=== PATIENT | male | born 1955 | race Caucasian/White ===

== ENCOUNTER 2022-03-13 19:02 | Observation (INO) ==
[~2022-03-13 19:02] MED LIST: Metoprolol XL (24 HR) Succ 25 MG TAB.ER.24H PO SCH
[2022-03-13] MEDS ORDERED: Ondansetron 4 MG/2 ML VIAL IVP ONE (19:40)
[2022-03-13] MEDS ORDERED: 0.9 % Sodium Chloride 1,000 ML IV ONE (19:40)
[2022-03-13 20:17] LABS: Basophils % 0.5 %; Eosinophils # 0.1 K/mcL (0.0-0.6); Eosinophils % 0.8 %; Hematocrit 27.4 % (37.5-50.1); Hemoglobin 8.9 g/dL (12.9-16.9); Immature Granulocytes % 0.3 % (0-4); Lymphocytes # 0.6 K/mcL (0.6-4.6); Lymphocytes % 6.7 %; Mean Corpuscular HGB Conc 32.5 g/dL (31.6-35.5); Mean Corpuscular Hemoglobin 27.6 pg (28.0-33.3); Mean Corpuscular Volume 85.1 fL (83.0-100.0); Mean Platelet Volume 9.3 fL (9.4-12.4); Monocytes # 0.7 K/mcL (0.0-1.3); Monocytes % 7.8 %; Neutrophils # 7.3 K/mcL (1.6-8.9); Platelet Count 275 K/mcL (140-400); Red Blood Count 3.22 M/mcL (4.19-5.50); Red Cell Distribution Width 15.3 % (11.5-14.5); Segmented Neutrophils % 83.9 %; White Blood Count 8.8 K/mcL (4.3-11.1)
[2022-03-13 20:21] VITALS: RESP 18
[2022-03-13 20:29] LABS: INR 2.3; Prothrombin Time 25.1 Seconds (9.4-12.1)
[2022-03-13 20:39] LABS: Albumin 3.9 g/dL (3.5-5.7); Bilirubin,Total 0.4 mg/dL (0.3-1.0); Calcium 10.1 mg/dL (8.6-10.3); Phosphorous 3.8 mg/dL (2.7-4.5); Potassium 4.1 mEq/L (3.5-5.1); Total Protein 7.9 g/dL (6.4-8.9); Troponin I 0.05 ng/mL (< 0.04)
[2022-03-13] MEDS ORDERED: *HR* Dextrose 50 % in Water (Syg) 50 ML SYRINGE IVP PRN (21:11)
[2022-03-13] MEDS ORDERED: D5% in Water 1,000 ML IVC PRN (21:11)
[2022-03-13] MEDS ORDERED: Ipratropium/Albuterol Neb 3 ML IH PRN (21:11)
[2022-03-13] MEDS ORDERED: Dextrose Gel 15 GM/37.5 ML TUBE PO PRN ×2 (21:11)
[2022-03-13] MEDS ORDERED: Ondansetron 4 MG/2 ML VIAL IVP PRN (21:12)
[2022-03-13] MEDS ORDERED: Naloxone 0.4 MG/ML INJ IVP PRN (21:12)
[2022-03-13] MEDS ORDERED: Acetaminophen 325 MG TABLET PO PRN (21:12)
[2022-03-14] MEDS: Gabapentin 300 MG CAPSULE PO SCH (02:07)
[2022-03-14 03:37] VITALS: BP 109/69; PULSE 81; TEMP 100.4; O2SAT 92
[2022-03-14] MEDS ORDERED: Insulin LISPRO 300 UNITS/3 ML VIAL SUBQ SCH ×2 (07:30→21:00)
[2022-03-14] MEDS ORDERED: *HR* Amiodarone 200 MG TABLET PO SCH (09:00)
[2022-03-14] MEDS ORDERED: Aspirin 81 MG TAB.CHEW PO SCH (09:00)
== END 2022-03-14 10:16 | disposition expired ==
LOC: EMEROOGRE 19:02 → INPGRE 19:02
PROVIDERS: ADMIT Student in an Organized Health Care Education/Training Program; ATTEND Student in an Organized Health Care Education/Training Program